=== PATIENT | male | born 1975 | race Hispanic/Latino ===

== ENCOUNTER 2019-01-15 06:50 | Emergency (ER) | payer SELFPAY ==
[2019-01-15 07:31] LABS: Absolute Lymphocytes (CBC) 0.4 K/uL (0.7-4.9); Basophils % 0.3 % (0-1.3); Eosinophils % 0.1 % (0-4.4); Hematocrit 46.1 % (39.6-49.0); Lymphocytes % 2.7 % (15.3-44.8); Monocytes % 2.2 % (3.3-12.3); RBC Red Blood Cell Count 5.31 M/uL (4.33-5.43)
[2019-01-15] MEDS ORDERED: ONDANSETRON 4 MG/2 ML VIAL ONE (07:32)
[2019-01-15] MEDS ORDERED: NA CHLORIDE 0.9% 1,000 ML ONE (07:32)
[2019-01-15] MEDS ORDERED: MORPHINE 4 MG/ML SYR ONE (07:32)
--- NOTE | 2019-01-15 08:05 | RAD REPORT ---
EXAM DESCRIPTION: USExtremrachna Venous Uni Ltd01/15/2019 7:52 am CLINICAL HISTORY: Right leg pain COMPARISON: None. FINDINGS: Right common femoral, superficial femoral, popliteal and right posterior tibial veins are compressible and demonstrate augmentation. Doppler demonstrates good flow. IMPRESSION: No evidence of deep venous thrombosis involving the right lower extremity.
[2019-01-15 08:08] LABS: ALT/SGPT 22 U/L (12-78); AST/SGOT 23 U/L (15-37); Albumin 1.4 g/dL (3.4-5.0); Alkaline Phosphatase 90 U/L (45-117); BUN Blood Urea Nitrogen 14 mg/dL (7-18); Bicarbonate 28 mmol/L (21-32); Bilirubin Direct < 0.1 mg/dL (0-0.2); Bilirubin Total 0.2 mg/dL (0.2-1.0); Glucose Level 111 mg/dL (74-106); Protein, Total 5.2 g/dL (6.4-8.2); Sodium Level 143 mmol/L (136-145)
[2019-01-15 08:09] LABS: Potassium 2.4 mmol/L (3.5-5.1)
[2019-01-15] MEDS ORDERED: KCL 20 MEQ/100 mL IVPB 20 MEQ/100 ML BAG IV ONE (08:30)
[2019-01-15] MEDS ORDERED: POTASSIUM 25 MEQ EFFERV TAB ONE ×2 (08:30→13:25)
[2019-01-15] MEDS ORDERED: CLINDAMYCIN 900MG/D5W 900 MG/50 ML IVPB IV ONE (09:10)
[2019-01-15 11:26] LABS: Platelet Estimate ADEQ; Urine White Blood Cell Casts OK
[2019-01-15 11:27] LABS: Blood Morphology Comment NOT SEEN (NOT SEEN)
[2019-01-15 12:51] LABS: Potassium 2.7 mmol/L (3.5-5.1)
--- NOTE | 2019-01-15 13:00 | EDPHYS ---
Physician Documentation [facility] Name: Delfino Rascon Age: 43 yrs Sex: Male : 1975 Arrival Date: 01/15/2019 Time: 06:55 Bed 5 Private MD: ED Physician Jaden Vieyra HPI: 01/15 07:50 This 43 yrs old Male presents to ER via Ambulatory with complaints of Right pm1 Leg Pain. 07:50 The patient presents with pain. The complaints affect the medial aspect of right thigh. pm1 Context: The problem was sustained at home, resulted from an unknown cause, the patient can fully bear weight, the patient is able to ambulate. 07:50 Onset: The symptoms/episode began/occurred this morning. Modifying factors: The pm1 symptoms are alleviated by nothing. the symptoms are aggravated by nothing. Associated signs and symptoms: Pertinent negatives calf tenderness, fever, numbness, tingling. Treatment prior to arrival includes: no previous treatment. Severity of symptoms: in the emergency department the symptoms are unchanged. The patient has not experienced similar symptoms in the past. The patient has not recently seen a physician. Historical: - Allergies: 07:09 No Known Allergies; tw2 - Home Meds: 07:09 None [Active]; tw2 - PMHx: 07:09 None; tw2 - PSHx: 07:09 None; tw2 - Immunization history:: Adult Immunizations. - Social history:: Smoking status: . - Ebola Screening: : Patient denies travel to an Ebola-affected area in the 21 days before illness onset. ROS: 07:50 Constitutional: Negative for fever, chills, and weight loss, Eyes: Negative for injury, pm1 pain, redness, and discharge, ENT: Negative for injury, pain, and discharge, Neck: Negative for injury, pain, and swelling, Cardiovascular: Negative for chest pain, palpitations, and edema, Respiratory: Negative for shortness of breath, cough, wheezing, and pleuritic chest pain, Abdomen/GI: Negative for abdominal pain, nausea, vomiting, diarrhea, and constipation, Back: Negative for injury and pain, : Negative for injury, bleeding, discharge, and swelling. 07:50 Neuro: Negative for headache, weakness, numbness, tingling, and seizure. 07:50 MS/extremity: Positive for pain, of the medial aspect of right thigh. 07:50 Skin: Positive for cellulitis, of the medial aspect of right thigh. Exam: 07:50 Constitutional: This is a well developed, well nourished patient who is awake, alert, pm1 and in no acute distress. Head/Face: Normocephalic, atraumatic. Chest/axilla: Normal chest wall appearance and motion. Nontender with no deformity. No lesions are appreciated. Cardiovascular: Regular rate and rhythm with a normal S1 and S2. No gallops, murmurs, or rubs. Normal PMI, no JVD. No pulse deficits. Respiratory: Lungs have equal breath sounds bilaterally, clear to auscultation and percussion. No rales, rhonchi or wheezes noted. No increased work of breathing, no retractions or nasal flaring. Abdomen/GI: Soft, non-tender, with normal bowel sounds. No distension or tympany. No guarding or rebound. No evidence of tenderness throughout. Back: No spinal tenderness. No costovertebral tenderness. Full range of motion. MS/ Extremity: Pulses equal, no cyanosis. Neurovascular intact. Full, normal range of motion. 07:50 Skin: Appearance: normal except for affected area, abscess, not appreciated, cellulitis, that is mild, on the medial aspect of right thigh, 4x4cm area. 07:50 Neuro: Orientation: is normal, Motor: is normal, moves all fours, Sensation: is normal, no obvious gross deficits. Vital Signs: 07:07 BP 119 / 81; Pulse 132; Resp 18; Temp 98.6(O); Pulse Ox 93% on R/A; Weight 70.31 kg; tw2 Height 5 ft. 5 in. (165.10 cm); Pain 9/10; 07:07 Pulse 129; Pulse Ox 94% ; tw2 07:12 Pulse 125; Pulse Ox 95% on R/A; tw2 08:03 BP 116 / 72; Pulse 108; Resp 17; Pulse Ox 94% on R/A; tw2 09:09 BP 111 / 77; Pulse 109; Resp 17; Pulse Ox 95% on R/A; tw2 10:18 BP 99 / 71; Pulse 108; Resp 20; Pulse Ox 97% on R/A; aj1 11:15 BP 102 / 67; Pulse 105; Resp 18; Pulse Ox 95% on R/A; aj1 12:15 BP 102 / 69; Pulse 88; Resp 20; Pulse Ox 95% on R/A; aj1 13:37 BP 101 / 69; Pulse 92; Resp 18; Pulse Ox 100% on R/A; aj1 07:07 Body Mass Index 25.79 (70.31 kg, 165.10 cm) tw2 MDM: 07:12 Patient medically screened. pm1 07:21 Data reviewed: vital signs. Data interpreted: Pulse oximetry: on room air is 95 %. pm1 Interpretation: normal. 12:58 Counseling: I had a detailed discussion with the patient and/or guardian regarding: the pm1 historical points, exam findings, and any diagnostic results supporting the discharge/admit diagnosis, lab results, radiology results, the need for outpatient follow up, to return to the emergency department if symptoms worsen or persist or if there are any questions or concerns that arise at home. 01/15 07:13 Order name: CBC with Diff; Complete Time: 11:50 pm1 01/15 07:13 Order name: BMP; Complete Time: 08:11 pm01/15 07:13 Order name: LFT's; Complete Time: 08:11 pm1 01/15 11:26 Order name: CBC Smear Scan EDMS 01/15 11:27 Order name: Manual Differential; Complete Time: 11:50 EDMS 01/15 11:53 Order name: BMP; Complete Time: 12:53 pm1 01/15 07:13 Order name: Extremity Venous Uni Ltd US; Complete Time: 08:11 pm01/15 07:13 Order name: IV Saline Lock; Complete Time: 07:26 pm1 01/15 08:12 Order name: EKG; Complete Time: 08:13 pm1 01/15 08:12 Order name: EKG - Nurse/Tech; Complete Time: 08:19 pm1 Administered Medications: 07:20 Drug: NS 0.9% 1000 ml Route: IV; Rate: 1000 ml; Site: right antecubital; tw2 07:20 Drug: Zofran 4 mg Route: IVP; Site: right antecubital; tw2 08:19 Follow up: Response: No adverse reaction 2 07:22 Drug: morphine 4 mg Route: IVP; Site: right antecubital; tw2 08:19 Follow up: Response: Pain is decreased tw2 08:19 Drug: Potassium Effervescent Tablet 50 mEq Route: PO; tw2 10:43 Follow up: Response: No adverse reaction aj1 08:19 Drug: Potassium Chloride 20 mEq Route: IV; Rate: calculated rate; Site: right tw2 antecubital; 10:43 Follow up: IV Status: Completed infusion; IV Intake: 100ml aj1 09:00 Drug: Clindamycin 900 mg Route: IVPB; Infused Over: 30 mins; Site: right antecubital; tw2 09:35 Follow up: Response: No adverse reaction; IV Status: Completed infusion tw2 13:37 Drug: Potassium Effervescent Tablet 50 mEq Route: PO; aj Disposition: 01/15/19 12:58 Discharged to Home. Impression: Cellulitis of right lower limb, Hypokalemia. - Condition is Stable. - Discharge Instructions: Cellulitis, Adult, Potassium Content of Foods, Hypokalemia. - Prescriptions for Clindamycin HCl 300 mg Oral Capsule - take 1 capsule by ORAL route every 6 hours for 10 days; 40 capsule. Bactrim DS 800- 160 mg Oral Tablet - take 1 tablet by ORAL route every 12 hours for 10 days; 20 tablet. Potassium Chloride 20 meq Oral Packet - take 1 packet by ORAL route once daily 1 packet in 6 (six) ounces of water or juice; Take after meal; 30 packet. - Medication Reconciliation Form, Thank You Letter, Antibiotic Education, Prescription Opioid Use, Work release form form. - Follow up: Emergency Department; When: As needed; Reason: Worsening of condition. Follow up: Private Physician; When: 2 - 3 days; Reason: Recheck today's complaints, Continuance of care, Re-evaluation by your physician. - Problem is new. - Symptoms have improved. Addendum: 01/16/2019 17:56 Co-signature as Attending Physician, Jaden Vieyra MD. g s Signatures: Dispatcher [employer] EDErlinda Sal RN RN [email or web address] Elizabeth Zendejas RN RN dm5 Lucio Camarena, HYDRAULIC SPECIALIST HYDRAULIC SPECIALIST pm1 Zaina Núñez RN RN tw2 Jaden Vieyra MD MD gs Corrections: (The following items were deleted from the chart) 01/15 07:14 07:14 IV Saline Lock ordered. 13:46 12:58 01/15/2019 12:58 Discharged to Home. Impression: Cellulitis of right lower limb; dm5 Hypokalemia. Condition is Stable. Forms are Work release form, Medication Reconciliation Form, Thank You Letter, Antibiotic Education, Prescription Opioid Use. Follow up: Emergency Department; When: As needed; Reason: Worsening of condition. Follow up: Private Physician; When: 2 - 3 days; Reason: Recheck today's complaints, Continuance of care, Re-evaluation by your physician. Problem is new. Symptoms have improved. pm1
--- NOTE | 2019-01-15 13:00 | ER ---
Nurse's Notes [facility] Name: Delfino Rascon Age: 43 yrs Sex: Male : 1975 Arrival Date: 01/15/2019 Time: 06:55 Bed 5 Private MD: Diagnosis: Cellulitis of right lower limb;Hypokalemia Presentation: 01/15 07:06 Presenting complaint: Patient states: i am having right upper leg pain and it is red. tw2 Transition of care: patient was not received from another setting of care. Onset of symptoms was January 15, 2019. Risk Assessment: Do you want to hurt yourself or someone else? Patient reports no desire to harm self or others. Initial Sepsis Screen: Does the patient meet any 2 criteria? No. Patient's initial sepsis screen is negative. Does the patient have a suspected source of infection? No. Patient's initial sepsis screen is negative. Care prior to arrival: None. 07:06 Method Of Arrival: Ambulatory tw2 07:06 Acuity: TATUM 3 tw2 Triage Assessment: 07:08 General: Appears in no apparent distress. Behavior is calm, cooperative, appropriate tw2 for age. Pain: Complains of pain in right inner thigh and right upper thigh. Historical: - Allergies: 07:09 No Known Allergies; tw2 - Home Meds: 07:09 None [Active]; tw2 - PMHx: 07:09 None; tw2 - PSHx: 07:09 None; tw2 - Immunization history:: Adult Immunizations. - Social history:: Smoking status: . - Ebola Screening: : Patient denies travel to an Ebola-affected area in the 21 days before illness onset. Screenin:09 Abuse screen: Denies threats or abuse. Nutritional screening: No deficits noted. tw2 Tuberculosis screening: No symptoms or risk factors identified. Fall Risk None identified. Assessment: 08:03 General: Appears in no apparent distress. Behavior is calm, cooperative, appropriate tw2 for age. Pain: Complains of pain in right upper thigh and right inner thigh. Neuro: Level of Consciousness is awake, alert, obeys commands, Oriented to person, place, time, situation. Cardiovascular: Heart tones S1 S2 Patient's skin is warm and dry. Respiratory: Airway is patent Respiratory effort is even, unlabored, Respiratory pattern is regular, symmetrical, Breath sounds are clear bilaterally. GI: No signs and/or symptoms were reported involving the gastrointestinal system. : No signs and/or symptoms were reported regarding the genitourinary system. EENT: No signs and/or symptoms were reported regarding the EENT system. Derm: Skin is red. Musculoskeletal: Range of motion: intact in all extremities. 09:10 Reassessment: Patient appears in no apparent distress at this time. No changes from tw2 previously documented assessment. Patient and/or family updated on plan of care and expected duration. Pain level reassessed. Patient is alert, oriented x 3, equal unlabored respirations, skin warm/dry/pink. 10:17 Reassessment: Patient and/or family updated on plan of care and expected duration. Pain aj1 level reassessed. General: Appears in no apparent distress. comfortable, Behavior is calm, cooperative, appropriate for age. Pain: Complains of pain in right upper thigh Pain does not radiate. Pain currently is 3 out of 10 on a pain scale. Neuro: Level of Consciousness is awake, alert, obeys commands, Oriented to person, place, time, situation. Cardiovascular: Patient's skin is warm and dry. Respiratory: Airway is patent Respiratory effort is even, unlabored, Respiratory pattern is regular, symmetrical. GI: No signs and/or symptoms were reported involving the gastrointestinal system. : No signs and/or symptoms were reported regarding the genitourinary system. EENT: No signs and/or symptoms were reported regarding the EENT system. Derm: Skin is redness noted to right upper leg. Musculoskeletal: No signs and/or symptoms reported regarding the musculoskeletal system. Range of motion: intact in all extremities. 11:15 Reassessment: Patient appears in no apparent distress at this time. No changes from aj1 previously documented assessment. Patient and/or family updated on plan of care and expected duration. Pain level reassessed. Patient is alert, oriented x 3, equal unlabored respirations, skin warm/dry/pink. 12:19 Reassessment: Patient appears in no apparent distress at this time. No changes from aj1 previously documented assessment. Patient and/or family updated on plan of care and expected duration. Pain level reassessed. Patient is alert, oriented x 3, equal unlabored respirations, skin warm/dry/pink. 13:37 Reassessment: Patient appears in no apparent distress at this time. No changes from aj1 previously documented assessment. Patient and/or family updated on plan of care and expected duration. Pain level reassessed. Patient is alert, oriented x 3, equal unlabored respirations, skin warm/dry/pink. Vital Signs: 07:07 BP 119 / 81; Pulse 132; Resp 18; Temp 98.6(O); Pulse Ox 93% on R/A; Weight 70.31 kg; tw2 Height 5 ft. 5 in. (165.10 cm); Pain 9/10; 07:07 Pulse 129; Pulse Ox 94% ; tw2 07:12 Pulse 125; Pulse Ox 95% on R/A; tw2 08:03 BP 116 / 72; Pulse 108; Resp 17; Pulse Ox 94% on R/A; tw2 09:09 BP 111 / 77; Pulse 109; Resp 17; Pulse Ox 95% on R/A; tw2 10:18 BP 99 / 71; Pulse 108; Resp 20; Pulse Ox 97% on R/A; aj1 11:15 BP 102 / 67; Pulse 105; Resp 18; Pulse Ox 95% on R/A; aj1 12:15 BP 102 / 69; Pulse 88; Resp 20; Pulse Ox 95% on R/A; aj1 13:37 BP 101 / 69; Pulse 92; Resp 18; Pulse Ox 100% on R/A; aj1 07:07 Body Mass Index 25.79 (70.31 kg, 165.10 cm) tw2 ED Course: 06:55 Patient arrived in ED. do 07:02 Lucio Camarena NP is PHCP. pm1 07:03 Placed in gown. Bed in low position. Adult w/ patient. Pulse ox on. NIBP on. tw2 07:06 Zaina Núñez, RAY is Primary Nurse. tw2 07:07 Triage completed. tw2 07:08 Arm band placed on. tw2 07:20 Inserted saline lock: 22 gauge in right antecubital area, using aseptic technique. tw2 Blood collected. 07:20 No provider procedures requiring assistance completed. tw2 07:22 Jaden Vieyra MD is Attending Physician. pm1 07:53 Extremity Venous Uni Ltd US In Process Unspecified. EDMS 08:29 EKG done, by explosive technician. reviewed by Lucio Camarena NP. at1 10:01 Report given to RAY Burrell. tw2 12:52 Notified Nurse Practitioner and/or Physician Ve Teacher of a critical lab result(s), k sg 2.6. 13:46 IV discontinued, intact, bleeding controlled, No redness/swelling at site. Pressure dm5 dressing applied. Administered Medications: 07:20 Drug: NS 0.9% 1000 ml Route: IV; Rate: 1000 ml; Site: right antecubital; tw2 07:20 Drug: Zofran 4 mg Route: IVP; Site: right antecubital; tw2 08:19 Follow up: Response: No adverse reaction tw2 07:22 Drug: morphine 4 mg Route: IVP; Site: right antecubital; tw2 08:19 Follow up: Response: Pain is decreased tw2 08:19 Drug: Potassium Effervescent Tablet 50 mEq Route: PO; tw2 10:43 Follow up: Response: No adverse reaction aj1 08:19 Drug: Potassium Chloride 20 mEq Route: IV; Rate: calculated rate; Site: right tw2 antecubital; 10:43 Follow up: IV Status: Completed infusion; IV Intake: 100ml aj1 09:00 Drug: Clindamycin 900 mg Route: IVPB; Infused Over: 30 mins; Site: right antecubital; tw2 09:35 Follow up: Response: No adverse reaction; IV Status: Completed infusion tw2 13:37 Drug: Potassium Effervescent Tablet 50 mEq Route: PO; aj1 Intake: 10:43 IV: 100ml; Total: 100ml. aj1 Outcome: 12:58 Discharge ordered by MD. pm1 13:46 Discharged to home ambulatory. dm5 13:46 Condition: good 13:46 Discharge instructions given to patient, family, Instructed on discharge instructions, follow up and referral plans. Demonstrated understanding of instructions, follow-up care, medications, Prescriptions given X 3. 13:46 Patient left the ED. dm5 Signatures: Dispatcher [employer] EDMS Erlinda Blevins RN RN aj1 Elizabeth Zendejas RN RN dm5 Luke Gutierrez RN RN sg Lala Saini, yarding engineer EKG Tat1 Eleanor Antonio Patrick, ANNY PNEUMATIC TUBE FITTER pm1 Zaina Núñez RN RN tw2
--- NOTE | 2019-01-15 15:38 | EKG ---
Test Date: 2019-01-15 Test Time: 08:21:57 Pallet Sorter: JAVON MEASUREMENT RESULTS: Intervals: Rate: 114 KS: 158 QRSD: 110 QT: 326 QTc: 449 [place]: P: 63 KS: 158 QRS: 42 T: 43 INTERPRETIVE STATEMENTS: Sinus tachycardia Nonspecific ST and T wave abnormality Abnormal ECG No previous ECG available for comparison Electronically Signed On 01-15-19 15:35:27 CDT by Sonny Peres
== END 2019-01-15 13:46 | disposition home or self-care (01) ==
LOC: ER 06:50
DX: L03.115 Cellulitis of right lower limb (principal); E87.6 Hypokalemia
CPT/HCPCS: 36415; 80048; 80076; 85025; 93005; 93971; 96365; 96375; 99284; J2405; J7030

== ENCOUNTER 2020-09-21 15:05 | Emergency (ER) | payer BC, OTHER ==
--- OUTSIDE RECORDS SUMMARY | 2020-09-21 15:08 | XMS REPORT | Continuity of Care Document ---
:1975 Author Organization [facility] t Address [address] [place] [address] Dr. Frederick [address] [place] [id number] Care Team Providers Name Role Phone Unavailable Unavailable Unavailable Problems This patient has no known problems. Allergies, Adverse Reactions, Alerts This patient has no known allergies or adverse reactions. Medications This patient has no known medications. Procedures This patient has no known procedures. Results This patient has no known results.
[2020-09-21 17:13] LABS: Absolute Lymphocytes (CBC) 0.8 K/uL (0.7-4.9); Basophils % 0.4 % (0-1.3); Lymphocytes % 8.5 % (15.3-44.8); MPV 8.3 fL (7.6-11.3); RBC Red Blood Cell Count 4.55 M/uL (4.33-5.43)
[2020-09-21] MEDS ORDERED: ONDANSETRON 4 MG/2 ML VIAL ONE (17:13)
[2020-09-21] MEDS ORDERED: NA CHLORIDE 0.9% 1,000 ML ONE (17:14)
[2020-09-21] MEDS ORDERED: FAMOTIDINE 20 MG/2 ML VIAL IV ONE (17:14)
[2020-09-21 17:18] LABS: ALT/SGPT 28 U/L (12-78); AST/SGOT 16 U/L (15-37); Albumin 3.8 g/dL (3.4-5.0); Alkaline Phosphatase 70 U/L (45-117); BUN Blood Urea Nitrogen 29 mg/dL (7-18); Bicarbonate 27 mmol/L (21-32); Bilirubin Direct < 0.1 mg/dL (0-0.2); Bilirubin Total 0.2 mg/dL (0.2-1.0); Glucose Level 117 mg/dL (74-106); Lipase 201 U/L (73-393); Potassium 4.2 mmol/L (3.5-5.1); Protein, Total 7.6 g/dL (6.4-8.2); Sodium Level 141 mmol/L (136-145)
[2020-09-21] MEDS ORDERED: MAGNES/ALUMIN/SIMET 30ML UCUP ONE (17:57)
[2020-09-21] MEDS ORDERED: LIDOCAINE VISCOUS 2% SOLN 15 ML UDC ONE (17:57)
--- NOTE | 2020-09-21 17:57 | RAD REPORT ---
EXAM DESCRIPTION: US - Abdomen Exam Limited - 09/21/2020 5:19 pm CLINICAL HISTORY: EPIGASTRIC PAIN COMPARISON: No comparisons FINDINGS: No gallstones, sludge or other abnormalities within the gallbladder lumen. There is no wal l thickening or pericholecystic fluid. No common duct stone or biliary tree dilatation identified. IMPRESSION: Normal gallbladder and biliary tree ultrasound.
--- NOTE | 2020-09-21 18:25 | ER ---
Nurse's Notes [facility] Name: Delfino Rascon Age: 45 yrs Sex: Male : 1975 Arrival Date: 09/21/2020 Time: 15:09 Bed 27 Private MD: Diagnosis: Epigastric pain;Chronic kidney disease, unspecified;Elevated blood-pressure reading, without diagnosis of hypertension Presentation: 09/21 16:08 Chief complaint: Patient states: Epigastric pain x 2 days. Today SOB with pain. Denies ca1 N/V/D. Coronavirus screen: shortness of breath, Client presents with at least one sign or symptom that may indicate coronavirus-19. Standard/surgical mask placed on the client. Provider contacted for isolation considerations. Ebola Screen: Patient negative for fever greater than or equal to 101.5 degrees Fahrenheit, and additional compatible Ebola Virus Disease symptoms Patient denies exposure to infectious person. Patient denies travel to an Ebola-affected area in the 21 days before illness onset. No symptoms or risks identified at this time. Initial Sepsis Screen: Does the patient meet any 2 criteria? No. Patient's initial sepsis screen is negative. Does the patient have a suspected source of infection? No. Patient's initial sepsis screen is negative. Risk Assessment: Do you want to hurt yourself or someone else? Patient reports no desire to harm self or others. Onset of symptoms was September 21, 2020. 16:08 Method Of Arrival: Ambulatory ca1 16:08 Acuity: TATUM 3 ca1 Triage Assessment: 18:35 General: Behavior is calm. zb Historical: - Allergies: 16:10 No Known Allergies; ca1 - Home Meds: 16:10 None [Active]; ca1 - PMHx: 16:10 None; ca1 - PSHx: 16:10 None; ca1 - Immunization history:: Flu vaccine is up to date. - Social history:: Smoking status: Patient denies any tobacco usage or history of. Screenin:28 Abuse screen: Denies threats or abuse. Denies injuries from another. Nutritional zb screening: No deficits noted. Tuberculosis screening: No symptoms or risk factors identified. Fall Risk None identified. Assessment: 16:26 General: Appears in no apparent distress. uncomfortable. Pain: Complains of pain in zb epigastric area Pain does not radiate. Pain currently is 7 out of 10 on a pain scale. Quality of pain is described as burning, Is continuous, Alleviated by nothing. Aggravated by eating, drinking. Neuro: Level of Consciousness is awake, alert, obeys commands, Oriented to person, place, time, situation. Cardiovascular: Patient's skin is warm and dry. Respiratory: Airway is patent Respiratory effort is even, unlabored, Respiratory pattern is regular, symmetrical, Breath sounds are clear bilaterally. GI: Abdomen is round Bowel sounds present X 4 quads. Abdomen is tender to palpation in epigastric area Reports upper abdominal pain. Derm: Skin is intact, is healthy with good turgor, Skin is dry, Skin is normal, Skin temperature is warm. Musculoskeletal: Range of motion: intact in all extremities. 17:20 Reassessment: Patient appears in no apparent distress at this time. Patient and/or zb family updated on plan of care and expected duration. Pain level reassessed. Patient is alert, oriented x 3, equal unlabored respirations, skin warm/dry/pink. 18:02 Reassessment: Patient appears in no apparent distress at this time. Patient and/or zb family updated on plan of care and expected duration. Pain level reassessed. Patient is alert, oriented x 3, equal unlabored respirations, skin warm/dry/pink. Patient states feeling better. 18:34 Reassessment: d/c instructions given. gait steady and even. zb Vital Signs: 16:08 BP 160 / 91; Pulse 117; Resp 18 S; Temp 98.8; Pulse Ox 98% on R/A; Weight 70.76 kg (R); ca1 Height 5 ft. 5 in. (165.10 cm) (R); Pain 8/10; 16:28 BP 145 / 92; Pulse 87; Resp 16; Pulse Ox 95% on R/A; zb 17:24 BP 145 / 100; Pulse 101; Resp 16; Pulse Ox 98% on R/A; zb 18:02 BP 146 / 90; Pulse 91; Resp 18; Pulse Ox 99% on R/A; zb 16:08 Body Mass Index 25.96 (70.76 kg, 165.10 cm) ca1 ED Course: 15:09 Patient arrived in ED. am2 16:10 Triage completed. ca1 16:10 Arm band placed on right wrist. ca1 16:12 Antwon Hutchinson PA is PHCP. cp 16:12 Erwin Pryor MD is Attending Physician. cp 16:19 Lily Marino RN is Primary Nurse. zb 16:28 Patient has correct armband on for positive identification. Placed in gown. Bed in low zb position. Call light in reach. Pulse ox on. NIBP on. Door closed. Noise minimized. Warm blanket given. 16:54 Inserted saline lock: 20 gauge in right forearm, using aseptic technique. Blood zb collected. 17:20 US Abdomen Limited: RUQ/epigastric area In Process Unspecified. EDMS 18:35 No provider procedures requiring assistance completed. IV discontinued, intact, zb bleeding controlled, No redness/swelling at site. Pressure dressing applied. Administered Medications: 17:01 Drug: Pepcid 20 mg Route: IVP; Site: right antecubital; zb 17:59 Follow up: Response: No adverse reaction; Marked relief of symptoms zb 17:01 Drug: Zofran (Ondansetron) 4 mg Route: IVP; Site: right antecubital; zb 17:59 Follow up: Response: No adverse reaction; Marked relief of symptoms zb 17:01 Drug: NS 0.9% 1000 ml Route: IV; Rate: 1 bolus; Site: right forearm; zb 17:59 Follow up: Response: No adverse reaction; Marked relief of symptoms; IV Status: zb Completed infusion; IV Intake: 1000ml 17:45 Drug: GI Cocktail without - (Maalox Suspension 30 ml, Lidocaine Liquid 2 % 15 zb ml) Route: PO; 18:01 Follow up: Response: No adverse reaction; Marked relief of symptoms zb Intake: 17:59 IV: 1000ml; Total: 1000ml. zb Outcome: 18:24 Discharge ordered by . cp 18:35 Discharged to home ambulatory. zb 18:35 Condition: stable 18:35 Discharge instructions given to patient, Instructed on discharge instructions, follow up and referral plans. medication usage, Demonstrated understanding of instructions, follow-up care, medications, Prescriptions given X 1. 18:36 Patient left the ED. zb Signatures: Dispatcher [employer] EDMS Antwon Hutchinson PA PA cp Moreno, Amanda am2 Adelia Kwong RN RN ca1 Brown, Lily, RN RN zb
--- NOTE | 2020-09-21 18:25 | EDPHYS ---
Physician Documentation [facility] Name: Delfino Rascon Age: 45 yrs Sex: Male : 1975 Arrival Date: 09/21/2020 Time: 15:09 Bed 27 Private MD: ED Physician Erwin Pryor HPI: 09/21 16:35 This 45 yrs old Male presents to ER via Ambulatory with complaints of cp Epigastric Pain - hard to take a breath. 16:35 The patient presents with abdominal pain in the epigastric area. Onset: The cp symptoms/episode began/occurred 2 day(s) ago, and became worse today, after eating BBQ wings at lunch. The symptoms do not radiate. 16:35 Associated signs and symptoms: Pertinent positives: nausea, Pertinent negatives: cp anorexia, diarrhea, fever, vomiting. 16:35 The symptoms are described as burning. cp Historical: - Allergies: 16:10 No Known Allergies; ca1 - Home Meds: 16:10 None [Active]; ca1 - PMHx: 16:10 None; ca1 - PSHx: 16:10 None; ca1 - Immunization history:: Flu vaccine is up to date. - Social history:: Smoking status: Patient denies any tobacco usage or history of. ROS: 16:40 Constitutional: Negative for body aches, chills, fever, poor PO intake. cp 16:40 Cardiovascular: Positive for radiating chest pain, Negative for edema, palpitations. cp 16:40 Eyes: Negative for injury, pain, redness, and discharge. cp 16:40 Respiratory: Negative for cough, shortness of breath, wheezing. 16:40 Abdomen/GI: Positive for abdominal pain, nausea, of the epigastric area, Negative for vomiting, diarrhea, constipation, black/tarry stool, rectal bleeding. 16:40 Back: Negative for radiated pain. 16:40 Neuro: Negative for altered mental status, headache, weakness. 16:40 All other systems are negative. Exam: 16:45 Constitutional: The patient appears in no acute distress, alert, awake, cp non-diaphoretic, non-toxic, well developed, well nourished. 16:45 Head/Face: Normocephalic, atraumatic. cp 16:45 Eyes: Periorbital structures: appear normal, Conjunctiva: normal, no exudate, no injection, Sclera: no appreciated abnormality, Lids and lashes: appear normal, bilaterally. 16:45 ENT: External ear(s): are unremarkable, Nose: is normal, Posterior pharynx: Airway: no evidence of obstruction, patent. 16:45 Chest/axilla: Inspection: normal, Palpation: is normal, no crepitus, no tenderness. 16:45 Cardiovascular: Rate: tachycardic, Rhythm: regular, Edema: is not appreciated, JVD: is not appreciated. 16:45 Respiratory: the patient does not display signs of respiratory distress, Respirations: normal, no use of accessory muscles, no retractions, labored breathing, is not present, Breath sounds: are clear throughout, no decreased breath sounds, no stridor, no wheezing. 16:45 Abdomen/GI: Inspection: abdomen appears normal, Bowel sounds: active, all quadrants, Palpation: soft, in all quadrants, mild abdominal tenderness, in the left upper quadrant, rebound tenderness, is not appreciated, voluntary guarding, is not appreciated, involuntary guarding, is not appreciated. 16:45 Back: pain, is absent, ROM is normal. Vital Signs: 16:08 BP 160 / 91; Pulse 117; Resp 18 S; Temp 98.8; Pulse Ox 98% on R/A; Weight 70.76 kg (R); ca1 Height 5 ft. 5 in. (165.10 cm) (R); Pain 8/10; 16:28 BP 145 / 92; Pulse 87; Resp 16; Pulse Ox 95% on R/A; zb 17:24 BP 145 / 100; Pulse 101; Resp 16; Pulse Ox 98% on R/A; zb 18:02 BP 146 / 90; Pulse 91; Resp 18; Pulse Ox 99% on R/A; zb 16:08 Body Mass Index 25.96 (70.76 kg, 165.10 cm) ca1 MDM: 16:25 Patient medically screened. cp 17:00 Differential diagnosis: cholecystitis, Cholelithiasis, gastritis, gastroesophageal cp reflux disease, GI Bleed, non-specific abd pain, pancreatitis, Peptic Ulcer Disease, Perf. Duodenal Ulcer, Perf. Gastric Ulcer. 18:22 Data reviewed: vital signs, nurses notes, lab test result(s), radiologic studies, cp ultrasound. Counseling: I had a detailed discussion with the patient and/or guardian regarding: the historical points, exam findings, and any diagnostic results supporting the discharge/admit diagnosis, the presence of at least one elevated blood pressure reading (>120/80) during this emergency department visit, lab results, radiology results, the need for outpatient follow up, a family practitioner. Response to treatment: the patient's symptoms have markedly improved after treatment, Patient reports epigastric pain markedly improved. 09/21 16:29 Order name: Basic Metabolic Panel; Complete Time: 17:25 cp 09/21 17:26 Interpretation: Normal except: CL 109; GLUC 117; BUN 29; CRE 1.88; GFR 39. cp 09/21 16:29 Order name: CBC with Diff; Complete Time: 17:25 cp 09/21 17:26 Interpretation: Normal except: HGB 13.4; HCT 39.0; MICHAEL% 84.9; LYM% 8.5. cp 09/21 16:29 Order name: Hepatic Function; Complete Time: 17:25 cp 09/21 16:29 Order name: Lipase; Complete Time: 17:25 cp 09/21 16:40 Order name: US Abdomen Limited: RUQ/epigastric area; Complete Time: 18:21 cp 09/21 18:21 Interpretation: Report reviewed. cp 09/21 16:29 Order name: IV Saline Lock; Complete Time: 17:01 cp 09/21 16:29 Order name: Labs collected and sent; Complete Time: 17:02 cp 09/21 17:27 Order name: PO challenge; Complete Time: 17:59 cp Administered Medications: 17:01 Drug: Pepcid 20 mg Route: IVP; Site: right antecubital; zb 17:59 Follow up: Response: No adverse reaction; Marked relief of symptoms zb 17:01 Drug: Zofran (Ondansetron) 4 mg Route: IVP; Site: right antecubital; zb 17:59 Follow up: Response: No adverse reaction; Marked relief of symptoms zb 17:01 Drug: NS 0.9% 1000 ml Route: IV; Rate: 1 bolus; Site: right forearm; zb 17:59 Follow up: Response: No adverse reaction; Marked relief of symptoms; IV Status: zb Completed infusion; IV Intake: 1000ml 17:45 Drug: GI Cocktail without - (Maalox Suspension 30 ml, Lidocaine Liquid 2 % 15 zb ml) Route: PO; 18:01 Follow up: Response: No adverse reaction; Marked relief of symptoms zb Disposition: 18:45 Chart complete. cp 09/22 07:25 Co-signature as Attending Physician, Erwin Pryor MD I agree with the assessment and kdr plan of care. Disposition: 09/21/20 18:24 Discharged to Home. Impression: Epigastric pain, Chronic kidney disease, unspecified, Elevated blood-pressure reading, without diagnosis of hypertension. - Condition is Stable. - Discharge Instructions: Gastroesophageal Reflux Disease, Adult, How to Take Your Blood Pressure, [id number], Chronic Kidney Disease, Adult, Form - Blood Pressure Record Sheet. - Prescriptions for Protonix 40 mg Oral Tablet - take 1 tablet by ORAL route once daily; 30 tablet. - Medication Reconciliation Form, Thank You Letter, Antibiotic Education, Prescription Opioid Use form. - Follow up: Private Physician; When: 2 - 3 days; Reason: Recheck today's complaints. - Problem is new. - Symptoms have improved. Signatures: Dispatcher [employer] EDMS Erwin Pryor MD MD kdr Antwon Hutchinson PA PA cp Adelia Kwong RN RAY ca1 Lily Marino RN RN zb Corrections: (The following items were deleted from the chart) 09/21 18:36 18:24 09/21/2020 18:24 Discharged to Home. Impression: Epigastric pain; Chronic kidney zb disease, unspecified; Elevated blood-pressure reading, without diagnosis of hypertension. Condition is Stable. Forms are Medication Reconciliation Form, Thank You Letter, Antibiotic Education, Prescription Opioid Use. Follow up: Private Physician; When: 2 - 3 days; Reason: Recheck today's complaints. Problem is new. Symptoms have improved. cp
[2020-09-21 20:34] VITALS: TEMP 98.8
[2020-09-21 20:37] VITALS: BP 146/90; O2SAT 99
== END 2020-09-21 18:36 | disposition home or self-care (01) ==
LOC: ER 15:05
DX: N18.9 Chronic kidney disease, unspecified (principal); R03.0 Elevated blood-pressure reading, without diagnosis of hypertension
CPT/HCPCS: 96361; 85025; 80048; 36415; 80076; 83690; 76705; 96375; 96374; 99284; J7030; J2405

== ENCOUNTER 2023-06-07 09:06 | Emergency (ER) | payer SELFPAY ==
--- OUTSIDE RECORDS SUMMARY | 2023-06-07 09:07 | XMS REPORT | Continuity of Care Document ---
Author Name Unknown Address [address] [place] [address] [employer] Address [address] [place] [address] Care Team Providers Care Payroll Accountant Name Role Phone Kt Flynn Attending Clinician Unavailable Encounters Start Date/Time End Date/Time Encounter Type Admission Type Attending Clinicians Care Facility Care Department Encounter ID Source 2023-05-19 15:51:00 Outpatient Kt Flynn [facility] [id number] [facility]
[2023-06-07 09:47] LABS: Specific Gravity 1.016 (1.005-1.030); Urine Bacteria None Seen /HPF (<20); Urine Bilirubin NEGATIVE (Negative); Urine Blood Negative (Negative); Urine Clarity Clear (Clear); Urine Color Light-Yellow (Yellow); Urine Glucose NEGATIVE (Negative); Urine Protein TRACE (Negative); Urine RBC <5 /HPF (None Seen); Urine Urobilinogen Normal (Normal)
[2023-06-07] MEDS ORDERED: NA CHLORIDE 0.9% 1,000 ML ONE ×2 (09:54→11:31)
[2023-06-07 09:55] LABS: Absolute Lymphocytes (CBC) 1.4 K/uL (0.7-4.9); Lymphocytes % 30.4 % (15.3-44.8); MCV 88.2 fL (80-100); MPV 7.8 fL (7.6-11.3); Platelets 234 thou/uL (152-406); RBC Red Blood Cell Count 4.54 M/uL (4.33-5.43)
[2023-06-07 10:04] LABS: Bilirubin Total 0.5 mg/dL (0.2-1.0); Potassium 3.9 mEq/L (3.5-5.1); Protein, Total 7.4 g/dL (6.4-8.2)
--- NOTE | 2023-06-07 10:53 | RAD REPORT ---
EXAM DESCRIPTION: CT - Abdomen Pelvis W Contrast - 06/07/2023 10:18 am CLINICAL HISTORY: ABD PAIN COMPARISON: No comparisons TECHNIQUE: Thin cut axial CT imaging of the abdomen and pelvis was performed following intravenous a dministration of 100 mL Isovue 300. Multiplanar reformats were generated and reviewed. All CT scans are performed using dose optimization technique as appropriate and may include automated exposure control or mA/KV adjustment according to patient size. FINDINGS: No suspicious findings in the lung bases. The liver, spleen, adrenal glands, and pancreas show no suspicious findings. Gallbladder and biliary tree are also without suspicious finding. Symmetric renal function is seen with no hydronephrosis or suspicious renal mass. No dilated bowel loops or bowel wall thickening. No free air, free fluid or inflammatory stranding. N o hernia, mass or bulky lymphadenopathy. The urinary bladder is without significant finding. No suspicious bony findings. IMPRESSION: No acute intra-abdominal process.
--- NOTE | 2023-06-07 11:35 | EDPHYS ---
Physician Documentation [facility] Name: Delfino Rascon Age: 47 yrs Sex: Male : 1975 Arrival Date: 06/07/2023 Time: 09:06 Bed 15 Private MD: ED Physician Judy Zaidi HPI: 06/07 10:13 This 47 yrs old Male presents to ER via Ambulatory with complaints of sb4 Abdominal Pain. 10:13 The patient presents with abdominal pain in the periumbilical area. right lower sb4 quadrant. Onset: The symptoms/episode began/occurred 4 day(s) ago. The symptoms do not radiate. Associated signs and symptoms: none. The patient has not experienced similar symptoms in the past. The patient has been recently seen by a physician: the patient's primary care provider. patient reports 4 days of abdominal pain. states it started in the epigastric/periumbilical region and has slowly migrated to his RLQ. states the pain has improved and is now a 1/10 because he has not eaten or drank. he was seen by PCP a few days ago and diagnosed with gastritis. Historical: - Allergies: 09:42 No Known Allergies; db - PMHx: 09:42 Hypertensive disorder; db - Immunization history:: Adult Immunizations unknown. - Social history:: Smoking status: Patient denies any tobacco usage or history of. ROS: 10:13 Constitutional: Negative for fever, chills, and weight loss, sb4 10:13 Abdomen/GI: Positive for abdominal pain, 10:13 All other systems are negative, Exam: 10:13 Constitutional: This is a well developed, well nourished patient who is awake, alert, sb4 and in no acute distress. Head/Face: Normocephalic, atraumatic. Eyes: Extra-ocular motions intact. Periorbital areas with no swelling, redness, or edema. ENT: Mucous membranes moist. Cardiovascular: Regular rate and rhythm with a normal S1 and S2. Respiratory: Lungs have equal breath sounds bilaterally, clear to auscultation and percussion. No rales, rhonchi or wheezes noted. No increased work of breathing, no retractions or nasal flaring. Abdomen/GI: Soft, non-tender, no distension. Skin: Warm, dry with normal turgor. Normal color with no rashes, no lesions, and no evidence of cellulitis. MS/ Extremity: Pulses equal, no cyanosis. Neurovascular intact. Full, normal range of motion. Vital Signs: 09:30 BP 136 / 86; Pulse 70; Resp 18; Temp 98.8(TE); Pulse Ox 100% ; Weight 70.76 kg; Height db 5 ft. 5 in. ; 10:30 BP 125 / 78; Pulse 69; Resp 18; Pulse Ox 100% ; db 11:39 BP 129 / 86; Pulse 72; Resp 18; Pulse Ox 100% on R/A; db 09:30 Body Mass Index 25.96 (70.76 kg, 165.1 cm) db MDM: 09:12 Patient medically screened. sb4 10:13 Differential diagnosis: appendicitis, bowel obstruction, cholecystitis, Cholelithiasis, sb4 diverticulitis, gastritis, non-specific abd pain, pancreatitis, Peptic Ulcer Disease, urinary tract infection. 11:34 Data reviewed: vital signs, nurses notes, lab test result(s), radiologic studies, and sb4 as a result, I will discharge patient. Care significantly affected by the following chronic conditions: Hypertension, Chronic Kidney Disease. Counseling: I had a detailed discussion with the patient and/or guardian regarding the historical points, exam findings, and any diagnostic results supporting the discharge/admit diagnosis, the presence of at least one elevated blood pressure reading (>120/80) during this emergency department visit, lab results, radiology results, the need for outpatient follow up, a linen clerk, to return to the emergency department if symptoms worsen or persist or if there are any questions or concerns that arise at home. ED course: BUN/creatinine elevated, improved compared to prior labs. 06/07 09:23 Order name: CBC with Diff; Complete Time: 10:05 sb4 06/07 09:23 Order name: CMP; Complete Time: 10:05 sb4 06/07 09:23 Order name: Lipase; Complete Time: 10:05 sb4 06/07 09:23 Order name: UAM; Complete Time: 09:54 sb4 06/07 09:32 Order name: CT Abd/Pelvis - IV Contrast Only; Complete Time: 10:55 sb4 06/07 09:23 Order name: IV Saline Lock; Complete Time: 09:41 sb4 06/07 09:23 Order name: Labs collected and sent; Complete Time: 09:41 sb4 Administered Medications: 09:41 Drug: NS 0.9% IV 1000 ml IV at 1 bolus Per protocol; 1000 mL bolus Route: IV; Rate: 1 db bolus; Site: right antecubital; 11:19 Follow up: Response: No adverse reaction; IV Status: Completed infusion; IV Intake: db 1000ml 11:19 Drug: NS 0.9% IV 1000 ml IV at 1 bolus Per protocol; 1000 mL bolus Route: IV; Rate: 1 db bolus; Site: right antecubital; Disposition Summary: 06/07/23 11:34 Discharge Ordered Notes: Location: Home sb4 Problem: an ongoing problem sb4 Symptoms: are unchanged sb4 Condition: Stable sb4 Diagnosis - Abdominal pain, Generalized sb4 Followup: sb4 - With: Ricco Martinez MD - When: As needed - Reason: Further diagnostic work-up, Recheck today's complaints, Re-evaluation by your physician Discharge Instructions: - Discharge Summary Sheet sb4 - Colonoscopy, Adult sb4 - Upper Endoscopy, Adult sb4 - Abdominal Pain, Adult, [id number] sb4 Forms: - Medication Reconciliation Form sb4 - Thank You Letter sb4 - Antibiotic Education sb4 - Prescription Opioid Use sb4 - Patient Portal Instructions sb4 - Leadership Thank You Letter sb4 Prescriptions: - dicyclomine 20 mg Oral tablet - take 1 tablet ORAL route 4 times per day As needed; 20 tablet; Refills: 0, sb4 Product Selection Permitted Addendum: 06/16/2023 09:15 I reviewed the patient's care provided by the Advanced Practice Provider and agree with c i the diagnosis and treatment plan. Signatures: Dispatcher [employer] Eleanor Ahmdai, RN RN Maricel Lenz PA-C PA-C sb4 IheonunekwuJudy
--- NOTE | 2023-06-07 11:35 | ER ---
Nurse's Notes [facility] Name: Delfino Rascon Age: 47 yrs Sex: Male : 1975 Arrival Date: 06/07/2023 Time: 09:06 Bed 15 Private MD: Diagnosis: Abdominal pain, Generalized Presentation: 06/07 09:30 Chief complaint: Patient states: PATIENT COMPLAINS OF LOWER ABD PAIN X 3 DAYS. DENIES db VOMITING. Coronavirus screen: Vaccine status: Patient reports receiving the 2nd dose of the covid vaccine. Client denies travel out of the [place] in the last 14 days. At this time, the client does not indicate any symptoms associated with coronavirus-19. Ebola Screen: Patient negative for fever greater than or equal to 101.5 degrees Fahrenheit, and additional compatible Ebola Virus Disease symptoms Patient denies exposure to infectious person. Patient denies travel to an Ebola-affected area in the 21 days before illness onset. No symptoms or risks identified at this time. Initial Sepsis Screen: Does the patient meet any 2 criteria? No. Patient's initial sepsis screen is negative. Does the patient have a suspected source of infection? No. Patient's initial sepsis screen is negative. Risk Assessment: Do you want to hurt yourself or someone else? Patient reports no desire to harm self or others. Onset of symptoms was June 04, 2023. 09:30 Method Of Arrival: Ambulatory db 09:30 Acuity: TATUM 3 db Triage Assessment: 09:30 General: Appears in no apparent distress. comfortable, Behavior is calm, cooperative. db Pain: Complains of pain in abdomen. EENT: No deficits noted. No signs and/or symptoms were reported regarding the EENT system. Neuro: Level of Consciousness is awake, alert, obeys commands, Oriented to person, place, time, situation. Cardiovascular: No deficits noted. Respiratory: Airway is patent Respiratory effort is even, unlabored, Respiratory pattern is regular, symmetrical. GI: Abdomen is flat, non-distended, Reports lower abdominal pain, Patient currently denies vomiting. : No deficits noted. No signs and/or symptoms were reported regarding the genitourinary system. Derm: No deficits noted. No signs and/or symptoms reported regarding the dermatologic system. Historical: - Allergies: :42 No Known Allergies; db - PMHx: 09:42 Hypertensive disorder; db - Immunization history:: Adult Immunizations unknown. - Social history:: Smoking status: Patient denies any tobacco usage or history of. Screenin:36 [facility] ED Fall Risk Assessment (Adult) History of falling in the last 3 months, db including since admission No falls in past 3 months (0 pts) Confusion or Disorientation No (0 pts) Intoxicated or Sedated No (0 pts) Impaired Gait No (0 pts) Mobility Assist Device Used No (0 pt) Altered Elimination Yes (1 pt) Score/Fall Risk Level 0 - 2 = Low Risk Oriented to surroundings, Maintained a safe environment. Abuse screen: Denies threats or abuse. Denies injuries from another. Nutritional screening: No deficits noted. Tuberculosis screening: No symptoms or risk factors identified. Assessment: 09:35 Reassessment: Patient appears in no apparent distress at this time. Patient and/or db family updated on plan of care and expected duration. Pain level reassessed. Patient is alert, oriented x 3, equal unlabored respirations, skin warm/dry/pink. SEE TRIAGE FOR INITIAL ASSESSMENT. 10:21 Reassessment: Patient appears in no apparent distress at this time. Patient and/or db family updated on plan of care and expected duration. Pain level reassessed. Patient is alert, oriented x 3, equal unlabored respirations, skin warm/dry/pink. PT RETURNED TO ROOM FROM CT. 11:49 Reassessment: Patient appears in no apparent distress at this time. Patient and/or db family updated on plan of care and expected duration. Pain level reassessed. Patient is alert, oriented x 3, equal unlabored respirations, skin warm/dry/pink. DC PENDING NS 1 LITER TO FINISH. Vital Signs: 09:30 BP 136 / 86; Pulse 70; Resp 18; Temp 98.8(TE); Pulse Ox 100% ; Weight 70.76 kg; Height db 5 ft. 5 in. ; 10:30 BP 125 / 78; Pulse 69; Resp 18; Pulse Ox 100% ; db 11:39 BP 129 / 86; Pulse 72; Resp 18; Pulse Ox 100% on R/A; db 09:30 Body Mass Index 25.96 (70.76 kg, 165.1 cm) db ED Course: 09:07 Patient arrived in ED. im 09:12 Maricel Marino PA-C is PHCP. sb4 09:12 Judy Zaidi is Attending Physician. sb4 09:27 Eleanor White, RN is Primary Nurse. db 09:30 Arm band placed on Patient placed in an exam room. db 09:36 Initial lab(s) drawn, by me, sent to lab. Inserted saline lock: 20 gauge in right db antecubital area, using aseptic technique. Blood collected. 09:36 Patient has correct armband on for positive identification. Bed in low position. Call db light in reach. Side rails up X 1. Pulse ox on. NIBP on. 09:44 Triage completed. db 10:20 CT Abd/Pelvis - IV Contrast Only In Process Unspecified. EDMS 11:34 Ricco Martinez MD is Referral Physician. sb4 Administered Medications: 09:41 Drug: NS 0.9% IV 1000 ml IV at 1 bolus Per protocol; 1000 mL bolus Route: IV; Rate: 1 db bolus; Site: right antecubital; 11:19 Follow up: Response: No adverse reaction; IV Status: Completed infusion; IV Intake: db 1000ml 11:19 Drug: NS 0.9% IV 1000 ml IV at 1 bolus Per protocol; 1000 mL bolus Route: IV; Rate: 1 db bolus; Site: right antecubital; Medication: 09:36 VIS not applicable for this client. db Intake: 11:19 IV: 1000ml; Total: 1000ml. db Outcome: 11:34 Discharge ordered by . sb4 12:50 Patient left the ED. eb Signatures: Dispatcher [employer] EDND Kerry Camara Eleanor White, RN RN Maricel Lenz PA-C PA-C sb4 Day Xiao
[2023-06-07 12:58] VITALS: TEMP 98.8; O2SAT 100
[2023-06-07 12:59] VITALS: BP 129/86
== END 2023-06-07 12:50 | disposition home or self-care (01) ==
LOC: ER 09:06
DX: R10.84 Generalized abdominal pain (principal); I10 Essential (primary) hypertension
CPT/HCPCS: 36415; 74177; 80053; 81001; 83690; 85025; 96360; 96361; 99284; J7030; Q9967

== ENCOUNTER 2023-11-09 13:46 | Emergency (ER) | payer SELFPAY ==
--- OUTSIDE RECORDS SUMMARY | 2023-11-09 13:48 | XMS REPORT | Continuity of Care Document ---
Author Name Unknown Address [address] [place] [address] [facility] Address [address] [place] [address] Care Team Providers Care Orthotics Prosthetics Assistant Name Role Phone Kt Flynn Attending Clinician Unavailable Problems Condition Name Condition Details Condition Category Status Onset Date Resolution Date Last Treatment Date Treating Clinician Comments Source [id number] Premature ejaculatio n Problem [facility] [id number] Essential hypertensi on Problem [facility] [id number] Erectile dysfunctio n, unspecifie d erectile dysfunctio n type Problem [facility] Social History Social Habit Start Date Stop Date Quantity Comments Source History of Tobacco Use [facility] Sex Assigned At [facility] Smoking Status Start Date Stop Date Source Never Smoker [facility] Medications Ordered Medication Name Filled Medication Name Start Date Stop Date Current Medication? Ordering Clinician Indication Dosage Frequency Signature (SIG) Comments Components Source Sertraline HCl 50 MG Sertraline HCl 50 MG 2022-06 00:00: 00 No 1{table t} QD Sertraline HCl 50 MG Sertraline HCl 50 MG Sertraline HCl 50 MG 2022-06 00:00: 00 No 1{table t} QD Sertraline HCl 50 MG Lisinopril- hydroCHLORO thiazide 10-12.5 MG Lisinopril- hydroCHLORO thiazide 10-12.5 MG No 1{table t} QD Lisinopril -hydroCHLO ROthiazide 10-12.5 MG Lisinopril- hydroCHLORO thiazide 10-12.5 MG Lisinopril- hydroCHLORO thiazide 10-12.5 MG No 1{table t} QD Lisinopril -hydroCHLO ROthiazide 10-12.5 MG Vital Signs Vital Name Observation Time Observation Value Comments Lisbeth valentine height 2023-05-19 16:00:00 65 [in_i] Commo n [facility] weight 2023-05-19 16:00:00 157 [lb_av] Comm on [facility] temperature 2023-05-19 16:00:00 97.5 [degF] Com mon [facility] bmi 2023-05-19 16:00:00 26.12 kg/m2 Comm on [facility] oximetry 2023-05-19 16:00:00 98 % Commo n [facility] respiratory rate 2023-05-19 16:00:00 16 /min [facility] blood pressure systolic 2023-05-19 16:00:00 138 mm[Hg] [facility] blood pressure diastolic 2023-05-19 16:00:00 84 mm[Hg] [facility] Encounters Start Date/Time End Date/Time Encounter Type Admission Type Attending [facility] Facility Care Department Encounter ID Source 2023-09-04 15:24:00 [facility]patient [facility] [id number] [facility] 2023-05-19 15:51:00 [facility]patient Gee [facility] [id number] [facility] 2023-08-29 00:00:00 2023-08-29 00:00:00 (TEL) [facility] [id number] [facility] 2023-05-19 00:00:00 2023-05-19 00:00:00 OFFICE VISIT NEW PT LEVEL 4 [facility] [id number] [facility]
--- NOTE | 2023-11-09 14:09 | ER ---
Nurse's Notes [facility] Name: Delfino Rascon Age: 48 yrs Sex: Male : 1975 Arrival Date: 11/09/2023 Time: 13:46 Bed IW1 Private MD: Diagnosis: Rash and other nonspecific skin eruption Presentation: 11/08 13:59 Chief complaint: Patient states: today he noticed a rash to upper med back , feels like iw burning pain , not itchy. Coronavirus screen: At this time, the client does not indicate any symptoms associated with coronavirus-19. Ebola Screen: Patient negative for fever greater than or equal to 101.5 degrees Fahrenheit, and additional compatible Ebola Virus Disease symptoms Patient denies exposure to infectious person. Patient denies travel to an Ebola-affected area in the 21 days before illness onset. No symptoms or risks identified at this time. Initial Sepsis Screen: Does the patient meet any 2 criteria? No. Patient's initial sepsis screen is negative. Does the patient have a suspected source of infection? No. Patient's initial sepsis screen is negative. Risk Assessment: Do you want to hurt yourself or someone else? Patient reports no desire to harm self or others. Onset of symptoms was November 09, 2023. 13:59 Method Of Arrival: Ambulatory iw 13:59 Acuity: TATUM 4 iw Historical: - Allergies: 14:00 No Known Allergies; iw - PMHx: 14:00 Hypertensive disorder; iw - PSHx: 14:00 None; iw - Infectious Disease History:: Denies. - Social history:: Smoking status: Patient denies any tobacco usage or history of. Vital Signs: 13:59 BP 137 / 83; Pulse 100; Resp 16; Temp 98.3; Pulse Ox 98% ; Weight 70.76 kg; Height 5 iw ft. 5 in. ; 13:59 Body Mass Index 25.96 (70.76 kg, 165.1 cm) iw ED Course: 13:48 Patient arrived in ED. im 13:50 Harinder Cox MD is Attending Physician. ec2 14:00 Triage completed. iw 14:01 Arm band placed on. iw 14:15 Pippa Lugo, RN is Primary Nurse. iw Administered Medications: No medications were administered Outcome: 14:08 Discharge ordered by . ec2 14:15 Patient left the ED. iw Signatures: Pippa Lugo RN RN Day Alanis Edwin, MD MD ec2
--- NOTE | 2023-11-09 14:09 | EDPHYS ---
Physician Documentation [facility] Name: Delfino Rascon Age: 48 yrs Sex: Male : 1975 Arrival Date: 11/09/2023 Time: 13:46 Bed IW1 Private MD: ED Physician Harinder Cox HPI: 11/08 14:08 This 48 yrs old Male presents to ER via Ambulatory with complaints of Rash. ec2 14:09 Patient arrives today for rash to the upper back. Patient reports the rash started ec2 yesterday. Patient reports no fevers or chills, denies nausea or vomiting. Patient reports of burning sensation to the area. Patient reports that he has tried permethrin cream as he had this leftover from another rash. No new detergents, no new foods, no new washes or creams.. Historical: - Allergies: 14:00 No Known Allergies; iw - PMHx: 14:00 Hypertensive disorder; iw - PSHx: 14:00 None; iw - Infectious Disease History:: Denies. - Social history:: Smoking status: Patient denies any tobacco usage or history of. ROS: 14:09 Constitutional: as per hpi ec2 Exam: 14:09 Constitutional: GEN: NAD Head: atraumatic Eyes: EOMI Ears: External ears are ec2 normal. CV: regular rate LUNGS: no respiratory distress ABD: non-distended SKIN: Rash noted to the upper back, bilateral upper back, nonvesicular, flat, and not raised, no fluctuance, no TTP, blanching MSK: no evidence of trauma NEURO: moves all extremities equally Vital Signs: 13:59 BP 137 / 83; Pulse 100; Resp 16; Temp 98.3; Pulse Ox 98% ; Weight 70.76 kg; Height 5 iw ft. 5 in. ; 13:59 Body Mass Index 25.96 (70.76 kg, 165.1 cm) iw MDM: 13:58 Patient medically screened. ec2 14:11 Data reviewed: vital signs. ec2 14:11 ED course: Patient arrives today for evaluation of a rash. Examination remarkable for ec2 skin findings as noted above. Will start the patient on low-dose steroids, will start the patient on capsaicin cream for the burning. Consider processes such as cellulitis, shingles. Doubt either process given appearance. Possible vasculitis.. Administered Medications: No medications were administered Disposition Summary: 11/09/23 14:08 Discharge Ordered Notes: Location: Home ec2 Condition: Stable ec2 Diagnosis - Rash and other nonspecific skin eruption ec2 Followup: ec2 - With: Private Physician - When: - Reason: Re-evaluation by your physician Discharge Instructions: - Discharge Summary Sheet ec2 - Rash, Adult ec2 Forms: - Medication Reconciliation Form ec2 - Antibiotic Education ec2 - Prescription Opioid Use ec2 - Patient Portal Instructions ec2 - Leadership Thank You Letter ec2 Prescriptions: - capsaicin 0.075 % Topical cream - apply 1 application TOPICAL route every 4 to 6 hours for 5 days do not wash ec2 area for at least 30 min after application; 1 unit; Refills: 0, Product Selection Permitted - Prednisone 20 mg Oral Tablet - take 1 tablet ORAL route once daily for 5 days; 5 tablet; Refills: 0, Product ec2 Selection Permitted Signatures: Pippa Lugo RN RN iw Harinder Cox MD MD ec2
[2023-11-09 14:21] VITALS: BP 137/83; TEMP 98.3; O2SAT 98
== END 2023-11-09 14:15 | disposition home or self-care (01) ==
LOC: ER 13:46
DX: R21 Rash and other nonspecific skin eruption (principal)
CPT/HCPCS: 99281

== ENCOUNTER 2024-03-09 15:16 | Emergency (ER) | payer SELFPAY ==
--- OUTSIDE RECORDS SUMMARY | 2024-03-09 15:19 | XMS REPORT | Continuity of Care Document ---
Author Name Unknown Address [address] [place] [address] [facility] Address [address] [place] [address] Care Team Providers Care Vault Cashier Name Role Phone Kt Flynn Attending Clinician Unavailable Problems Condition Name Condition Details Condition Category Status Onset Date Resolution Date Last Treatment Date Treating Clinician Comments Source [id number] Premature ejaculatio n Problem [facility] [id number] Essential hypertensi on Problem [facility] [id number] Erectile dysfunctio n, unspecifie d erectile dysfunctio n type Problem [facility] Social History Social Habit Start Date Stop Date Quantity Comments Source History of Tobacco Use [facility] Sex Assigned At [facility] Smoking Status Start Date Stop Date Source Never Smoker [facility] Medications Ordered Medication Name Filled Medication Name [...] height 2023-05-19 16:00:00 65 [in_i] Commo n [facility] weight 2023-05-19 16:00:00 157 [lb_av] Comm on [facility] temperature 2023-05-19 16:00:00 97.5 [degF] Com mon [facility] bmi 2023-05-19 16:00:00 26.12 kg/m2 Comm on [facility] oximetry 2023-05-19 16:00:00 98 % Commo n [facility] respiratory rate 2023-05-19 16:00:00 16 /min [facility] blood pressure systolic 2023-05-19 16:00:00 138 mm[Hg] [facility] blood pressure diastolic 2023-05-19 16:00:00 84 mm[Hg] [facility] Encounters Start Date/Time End Date/Time Encounter Type Admission Type Attending [facility] Facility Care Department Encounter ID Source 2023-09-04 15:24:00 Out[facility]t [facility] [id number] [facility] 2023-05-19 15:51:00 Outpatient Gee Kt [facility] [id number] [facility] 2023-08-29 00:00:00 2023-08-29 00:00:00 (TEL) [facility] [id number] [facility] 2023-05-19 00:00:00 2023-05-19 00:00:00 OFFICE VISIT NEW PT LEVEL 4 [facility] [id number] [facility]
[2024-03-09 16:24] LABS: Absolute Eosinophils 0.2 K/uL (0-0.5); Absolute Lymphocytes (CBC) 1.4 K/uL (0.7-4.9); Absolute Monocytes 0.4 K/uL (0.1-1.3); Basophils % 0.4 % (0-1.3); Hematocrit 39.4 % (39.6-49.0); Hemoglobin 13.5 g/dL (13.6-17.9); MCH 30.3 pg (27.0-35.0); MCHC 34.2 g/dL (32.0-36.0); MCV 88.4 fL (80-100); MPV 7.7 fL (7.6-11.3); Monocytes % 7.2 % (3.3-12.3); Neutrophils % 66.4 % (41.7-73.7); Nucleated Red Blood Cells % 0.1 % (0-0); Platelets 260 thou/uL (152-406); RBC Red Blood Cell Count 4.45 M/uL (4.33-5.43); Red Cell Distribution Width 13.2 % (12.1-15.2)
[2024-03-09 16:44] LABS: Anion Gap 6.9 mEq/L (5.0-15.0); Potassium 3.9 mEq/L (3.5-5.1); Troponin High Sensitivity 4.1 pg/mL (<58.9)
--- NOTE | 2024-03-09 17:13 | RAD REPORT ---
EXAM DESCRIPTION: RAD - Chest Single View - 03/09/2024 4:35 pm CLINICAL HISTORY: CHEST PAIN Chest pain. COMPARISON: No comparisons FINDINGS: Portable technique limits examination quality. The lungs are underinflated resulting in vascular crowding. The heart is normal in size. No displaced fractures. IMPRESSION: Vascular crowding is noted which could be related to underinflation. Small infiltrate co uld be obscured.
[2024-03-09] MEDS ORDERED: NA CHLORIDE 0.9% 1,000 ML ONE (17:19)
--- NOTE | 2024-03-09 17:34 | EDPHYS ---
Physician Documentation [facility] Name: Delfino Rascon Age: 48 yrs Sex: Male : 1975 Arrival Date: 03/09/2024 Time: 15:16 Bed 9 Private MD: ED Physician Antwon Miranda HPI: 03/09 16:08 This 48 yrs old Male presents to ER via Ambulatory with complaints of Chest kb Pain - 2-3 days. 16:08 Pt is a 48 year old male who presents with left lateral chest pain and pain to center kb of chest that started 2-3 days ago. States pain is worse with movement and breathing. Denies injury, trauma, cough. Historical: - Allergies: 15:50 No Known Allergies; cm10 - Home Meds: 15:51 lisinopril-hydrochlorothiazide 10-12.5 mg oral tablet [Active]; cm10 - PMHx: 15:50 Hypertensive disorder; cm10 - PSHx: 15:50 None; cm10 - Immunization history:: Adult Immunizations up to date. - Infectious Disease History:: Denies. - Social history:: Smoking status: Patient denies any tobacco usage or history of. ROS: 16:06 Constitutional: As per HPI kb Exam: 16:06 Constitutional: This is a well developed, well nourished patient who is awake, alert, kb and in no acute distress. Head/Face: Normocephalic, atraumatic. ENT: Moist Mucous membranes Cardiovascular: Regular rate Respiratory: Respirations even and unlabored. No increased work of breathing. Talking in full sentences Abdomen/GI: Soft, non-tender. No distention Skin: Warm, dry with normal turgor. Normal color. MS/ Extremity: Pulses equal, no cyanosis. Neurovascular intact. Full, normal range of motion. Neuro: Awake and alert, GCS 15, oriented to person, place, time, and situation. Moves all extremities. Normal gait. 16:06 ECG was reviewed by the Attending Physician. Vital Signs: 15:49 BP 134 / 84; Pulse 88; Resp 18; Temp 97.5(IR); Pulse Ox 100% on R/A; Weight 70.76 kg; cm10 Height 5 ft. 5 in. ; Pain 6/10; 17:47 BP 111 / 76; Pulse 72; Resp 16; Pulse Ox 97% on R/A; me1 18:28 BP 117 / 73; Pulse 71; Resp 15; Temp 98.1; Pulse Ox 98% on R/A; me1 15:49 Body Mass Index 25.96 (70.76 kg, 165.1 cm) cm10 15:49 Pain Scale: Adult cm10 MDM: 15:29 Patient medically screened. kb 16:08 Data reviewed: vital signs, nurses notes. kb 19:06 Differential diagnosis: arrhythmia, mi, chest wall pain. Counseling: I had a detailed kb discussion with the patient and/or guardian regarding the historical points, exam findings, and any diagnostic results supporting the discharge/admit diagnosis, lab results, radiology results, the need for outpatient follow up, a family practitioner, to return to the emergency department if symptoms worsen or persist or if there are any questions or concerns that arise at home. 03/09 15:48 Order name: Basic Metabolic Panel; Complete Time: 16:45 kb 03/09 15:48 Order name: CBC with Diff; Complete Time: 16:36 kb 03/09 15:48 Order name: D-Dimer; Complete Time: 17:07 kb 03/09 15:48 Order name: Troponin HS; Complete Time: 16:45 kb 03/09 15:48 Order name: XRAY Chest (1 view); Complete Time: 17:13 kb 03/09 15:48 Order name: EKG; Complete Time: 15:49 kb 03/09 15:48 Order name: EKG - Nurse/Tech; Complete Time: 17:16 kb 03/09 15:48 Order name: IV Saline Lock; Complete Time: 17:16 kb 03/09 15:48 Order name: Labs collected and sent; Complete Time: 17:16 kb 03/09 15:48 Order name: O2 Per Protocol; Complete Time: 17:16 kb 03/09 15:48 Order name: O2 Sat Monitoring; Complete Time: 17:16 kb EC:06 Rate is 97 beats/min. Rhythm is regular. QRS [place] is Normal. VT interval is normal at kb 136 msec. QRS interval is normal at 94 msec. QT interval is normal at 434 msec. Administered Medications: 17:28 Drug: NS 0.9% IV 1000 ml IV at 1000 ml once Route: IV; Rate: 1000 ml; Site: left iw antecubital; 18:30 Follow up: Response: No adverse reaction; IV Status: Completed infusion; IV Intake: me1 1000ml Disposition Summary: 03/09/24 17:33 Discharge Ordered Notes: Location: Home kb Condition: Stable kb Diagnosis - Chest pain, unspecified kb Followup: kb - With: Private Physician - When: 2 - 3 days - Reason: Recheck today's complaints, Continuance of care, Re-evaluation by your physician Followup: kb - With: Emergency Department - When: As needed - Reason: Worsening of condition Discharge Instructions: - Discharge Summary Sheet kb - Chest Wall Pain, [id number]-[id number] kb - Nonspecific Chest Pain, Adult, [id number] kb Forms: - Medication Reconciliation Form kb - Antibiotic Education kb - Prescription Opioid Use kb - Patient Portal Instructions kb - Leadership Thank You Letter kb Addendum: 03/13/2024 15:44 Co-signature as Attending Physician, Antwon Miranda MD I agree with the assessment and c davison plan of care. Signatures: Dispatcher [employer] Tanya Bojorquez, EQUIPMENT DRIVER-C EQUIPMENT DRIVER-Antwon Green MD MD cha Williams, Irene, RN RN Misty Mann RN RN cm10 Fang Garcia RN me1 Corrections: (The following items were deleted from the chart) 03/09 15:52 15:50 Home Meds: lisinopril 10 mg oral tablet daily; cm10 cm10
--- NOTE | 2024-03-09 17:34 | ER ---
Nurse's Notes [facility] Name: Delfino Rascon Age: 48 yrs Sex: Male : 1975 Arrival Date: 03/09/2024 Time: 15:16 Bed 9 Private MD: Diagnosis: Chest pain, unspecified Presentation: 03/09 15:49 Chief complaint: Patient states: Chest pain to the center of his chest and to his left cm10 ribs onset 2-3 days ago. Pt states that the pain is worse with inspiration and with movement. Coronavirus screen: Client denies travel out of the [place] in the last 14 days. At this time, the client does not indicate any symptoms associated with coronavirus-19. Ebola Screen: Patient denies travel to an Ebola-affected area in the 21 days before illness onset. No symptoms or risks identified at this time. Initial Sepsis Screen: Does the patient meet any 2 criteria? No. Patient's initial sepsis screen is negative. Does the patient have a suspected source of infection? No. Patient's initial sepsis screen is negative. Risk Assessment: Do you want to hurt yourself or someone else? Patient reports no desire to harm self or others. Onset of symptoms was March 09, 2024. 15:49 Method Of Arrival: Ambulatory cm10 15:49 Acuity: TATUM 2 cm10 Triage Assessment: 15:51 General: Appears in no apparent distress. comfortable, Behavior is calm, cooperative. cm10 Neuro: No deficits noted. Level of Consciousness is awake, alert, obeys commands, Oriented to person, place, time, situation, Appropriate for age. Cardiovascular: Reports chest pain, since 2-3 days ago Patient's skin is warm and dry. Historical: - Allergies: 15:50 No Known Allergies; cm10 - Home Meds: 15:51 lisinopril-hydrochlorothiazide 10-12.5 mg oral tablet [Active]; cm10 - PMHx: 15:50 Hypertensive disorder; cm10 - PSHx: 15:50 None; cm10 - Immunization history:: Adult Immunizations up to date. - Infectious Disease History:: Denies. - Social history:: Smoking status: Patient denies any tobacco usage or history of. Screenin:41 [facility] ED Fall Risk Assessment (Adult) History of falling in the last 3 months, iw including since admission No falls in past 3 months (0 pts) Confusion or Disorientation No (0 pts) Intoxicated or Sedated No (0 pts) Impaired Gait No (0 pts) Mobility Assist Device Used No (0 pt) Altered Elimination No (0 pt) Score/Fall Risk Level 0 - 2 = Low Risk Oriented to surroundings, Maintained a safe environment. Abuse screen: Denies injuries from another. Nutritional screening: No deficits noted. Tuberculosis screening: No symptoms or risk factors identified. Assessment: 16:10 General: Appears in no apparent distress. Behavior is calm, cooperative. Pain: iw Complains of pain in chest Pain: Pain began 2-3 days ago. Neuro: Level of Consciousness is awake, alert, obeys commands, Oriented to person, place, time, situation, Moves all extremities. Cardiovascular: Reports chest pain, Patient's skin is warm and dry. Respiratory: Respiratory effort is even, unlabored, Respiratory pattern is regular. Derm: Skin is intact, is healthy with good turgor. Musculoskeletal: Range of motion: intact in all extremities. Vital Signs: 15:49 BP 134 / 84; Pulse 88; Resp 18; Temp 97.5(IR); Pulse Ox 100% on R/A; Weight 70.76 kg; cm10 Height 5 ft. 5 in. ; Pain 6/10; 17:47 BP 111 / 76; Pulse 72; Resp 16; Pulse Ox 97% on R/A; me1 18:28 BP 117 / 73; Pulse 71; Resp 15; Temp 98.1; Pulse Ox 98% on R/A; me1 15:49 Body Mass Index 25.96 (70.76 kg, 165.1 cm) cm10 15:49 Pain Scale: Adult cm10 ED Course: 15:18 Patient arrived in ED. ra3 15:28 [facility] Painter [facility]-C [facility] kb 15:28 Antwon Miranda MD is Attending Physician. kb 15:50 Triage completed. cm10 15:52 Arm band placed on Patient placed in waiting room. EKG completed in triage. Results cm10 shown to MD. 15:52 EKG done, by ED staff, reviewed by Tanya PHILLIP. cm10 16:03 Pippa Lugo, RN is Primary Nurse. iw 16:10 Patient has correct armband on for positive identification. Client placed on continuous iw cardiac and pulse oximetry monitoring. NIBP monitoring applied. 16:12 Initial lab(s) drawn, by me, sent to lab. Inserted saline lock: 20 gauge in left iw antecubital area, using aseptic technique. Blood collected. Flushed with 10 mL NS. 16:37 XRAY Chest (1 view) In Process Unspecified. EDMS 17:05 Provided Education on: POC. Verbalized understanding.. me1 18:28 No provider procedures requiring assistance completed. IV discontinued, intact, me1 bleeding controlled, No redness/swelling at site. Pressure dressing applied. Administered Medications: 17:28 Drug: NS 0.9% IV 1000 ml IV at 1000 ml once Route: IV; Rate: 1000 ml; Site: left iw antecubital; 18:30 Follow up: Response: No adverse reaction; IV Status: Completed infusion; IV Intake: me1 1000ml Medication: 18:29 VIS not applicable for this client. me1 Intake: 18:30 IV: 1000ml; Total: 1000ml. me1 Outcome: 17:33 Discharge ordered by MD. leblanc 18:28 Discharged to home ambulatory, me1 18:28 Condition: stable 18:28 Discharge instructions given to patient, Instructed on discharge instructions, follow up and referral plans. medication usage, Demonstrated understanding of instructions, follow-up care, medications, 18:29 Patient left the ED. me1 Signatures: Dispatcher [employer] EDTanya Romano, TAPROOM ATTENDANT-C TAPROOM ATTENDANT-Ckb Pippa Lugo RN RN iw Misty Mann RN RN 10 Fang Garcia RN RN [facility] [place] Ibrahim 3 Corrections: (The following items were deleted from the chart) 15:52 15:50 Home Meds: lisinopril 10 mg oral tablet daily; cm10 cm10
[2024-03-09 19:06] VITALS: BP 117/73; TEMP 98.1; O2SAT 98
--- NOTE | 2024-03-11 16:28 | EKG ---
Test Date: 2024-03-09 Test Time: 15:47:20 Production Gear Cutter: LEONID MEASUREMENT RESULTS: Intervals: Rate: 97 AR: 136 QRSD: 94 QT: 342 QTc: 434 [place]: P: 59 AR: 136 QRS: -1 T: 40 INTERPRETIVE STATEMENTS: Normal sinus rhythm Incomplete right bundle branch block Borderline ECG Compared to ECG 01/15/2019 08:21:57 Incomplete right bundle-branch block now present Sinus tachycardia no longer present ST (T wave) deviation no longer present Electronically Signed On 03-11-24 16:23:24 CDT by Ephraim Lion
== END 2024-03-09 18:29 | disposition home or self-care (01) ==
LOC: ER 15:16
DX: R07.9 Chest pain, unspecified (principal); I10 Essential (primary) hypertension
CPT/HCPCS: 36415; 71045; 80048; 84484; 85025; 85379; 93005; 96360; 99284; J7030